=== PATIENT | female | born 1980 | race Caucasian/White ===

== ENCOUNTER 2021-05-29 14:37 | Outpatient (CLI) | payer OTHER, SELFPAY ==
[2021-05-29 20:16] LABS: Hematocrit 44.1 % (37.0-47.0); Hemoglobin 14.7 g/dL (12.0-15.0); Mean Corpuscular HGB Conc 33.3 g/dl (32-36); Mean Corpuscular Hemoglobin 30.9 pg (26-34); Mean Corpuscular Volume 92.8 fl (80-100); Mean Platelet Volume 9.6 fl (7.4-10.4); Platelet Count Result 293 k/mm3 (150-375); Red Blood Count 4.75 M/mm3 (4.2-5.4); White Blood Count 9.7 K/mm3 (4.5-10.0)
[2021-05-29 21:23] LABS: Vitamin D 25 Hydroxy 29.6 ng/mL
== END 2021-05-29 14:38 | disposition home or self-care (01) ==
LOC: ANHBWCLAB 14:38
PROVIDERS: Visit Provider Obstetrics & Gynecology
DX: R53.83 Other fatigue (principal)
CPT/HCPCS: 36415; 82306; 84443; 85027

== ENCOUNTER 2021-10-15 00:24 | Day surgery (SDC) | payer OTHER, SELFPAY ==
[2021-10-08 12:29] VITALS: BMI 33.5
--- NOTE | 2021-10-08 12:40 | PC.NURSE ---
Report to the Outpatient Waiting Room, entrance under the green pavilion located off [facility], at time 1000 on date 10/15/21. OR Time: 1200. - You and your visitor will be asked a series of questions to screen for COVID 19 for your protection. - A mask is required within the hospital. One visitor will be allowed to accompany the patient into the hospital. Patients visitor will be instructed to remain with patient at all times or leave the building. We will allow the visitor to come back to the postoperative area when patient is ready. Preoperative COVID Testing Requirements: No COVID Test needed if: (proof is required; if not received patient will have Rapid Test prior to entry) - Patient has received COVID Vaccine at least 14 days prior to procedure date or - Patient has positive COVID test result within last 90 days of surgery date. COVID Test needed if above criteria is not met Patients may have clear liquids (water, carbonated beverages, clear teas, apple juice) until 3 hours prior to surgery with a maximum of 20 ounces. - No food from midnight until time of surgery Take the following medications with a SIP of water the morning of surgery: ALPRAZOLAM (IF NEEDED) Medications to discontinue per physician: VITAMINS/SUPPLEMENTS Date to take last dose: 10/11/21 Please no make-up, nail luxembourgish, hairspray, perfume, deodorant, or body powder the day of surgery. No jewelry (including any body piercings) or valuables the day of surgery, leave them at home. Please take a shower or bath the night before, or the morning of, surgery with an antibacterial soap. Wear comfortable, loose fitting clothing. - Jewelry must be removed prior to entering the operating room. Rings and piercings that are not removed may be cut off. - The hospital will not accept responsibility for valuables. - Please leave all valuables, including medications, at home the day of surgery. If you are going home after surgery, a licensed light truck driver must drive you home. - NO public transportation without another adult. - We recommend that an adult stay with you for 24 hours following discharge. - We also recommend that you do not drive, make important decision, drink alcoholic beverages, or take any drugs that were not prescribed by your health care provider for at least 24 hours after your discharge time. Follow any additional instructions given to you from your surgeon. Telephone instructions given to GARRETT YEUNG and asked if any additional questions and then verbalized understanding. Patient advised to call surgeon office or pre surgery nurse liaison [phone] if any additional questions.
--- NOTE | 2021-10-11 16:14 | PM.IMHP ---
H&P: HPI History of Present Illness Date/Time: 10/11/21 16:14 40 y/o who was amenorrheic after balation in 2010 through 01/2021. Since then, she has had light irregular bleeding but very severe cramping any times she bleeds. She is opting for hysterectomy Chief Complaint: dysmenorrhea Review of Systems Review of Systems: All systems reviewed & are unremarkable except as noted in HPI and below PMFSH Past Medical History Medical History Elective x2 HSV (herpes simplex virus) infection Missed x1 Vaginal delivery x2 Surgical History Surgical History History of bilateral tubal ligation History of cholecystectomy 2013 History of endometrial ablation 07/14/11 History of exploratory laparotomy 1994? History of laparoscopy Previous section x1 [place] teeth extracted Family History Family History Father Carcinoma of colon Mother Breast cancer Skin cancer Anxiety Depression Sibling Asthma Anxiety Depression Grandparent Leukemia Lung cancer Brain cancer Grandparent Heart problem Social History Social History Years smoked: 6 Smoking status: Former smoker Tobacco type: e-cigarettes/vaping Smoking end date: 08/04/11 Additional smoking assessment comments: QUIT CIGARETTES IN 2011, VAPING NOW Alcohol intake: current Drinks per week: 2 Alcohol use details: 2/MONTH Substance use: never Substance use type: does not use Spiritual care concerns: No Meds Home Medications and Allergies Home Medications Medication Instructions Recorded Confirmed Type alprazolam 0.5 mg tablet 0.5 mg PO QHS PRN 05/29/21 10/08/21 History cholecalciferol (vitamin D3) 50 mcg PO DAILY 10/08/21 10/08/21 History [Vitamin D3] Allergies Allergy/AdvReac Type Severity Reaction Status Date / Time medroxyprogesterone Allergy Unknown Hives Verified 10/08/21 12:28 [From Depo-Provera] Penicillins Allergy Unknown Unknown Verified 10/08/21 12:28 Sulfa (Sulfonamide Allergy Unknown Hives Verified 10/08/21 12:28 Antibiotics) Exam Const: General: healthy appearing, no acute distress, alert and awake Resp: Auscultation: clear to auscultation bilaterally Cardio: Rate: regular rate Rhythm: regular rhythm GI: Inspection: non-distended GI Palp: Yes Soft to palpation and No Tenderness to palpation present (GI) : Bimanual exam- vagina & uterus: normal bimanual exam, uterine size normal, uterine mobility normal, non-tender and soft Bimanual Exam- Adnexa, other: normal adnexae, no masses and No adnexal tenderness Extrem: General: no pedal edema and no calf tenderness Psych: Mental Status: mental status grossly normal Assessment and Plan Assessment and plan (1) Dysmenorrhea: Code(s): N94.6 - Dysmenorrhea, unspecified Status: Acute Assessment and Plan: She signed consent after risks, benefits, complications, and alternatives discussed for TLH / bilateral salpingectomy. She expressed understanding and wishes to proceed
[2021-10-15] VITALS (9 sets, daily range): BP systolic 103–125; BP diastolic 68–87; PULSE 59–112; RESP 13–18; TEMP 36.1–36.7; O2SAT 96–100
[2021-10-15] MEDS: ACETAMINOPHEN 500 MG TABLET 1000 MG PO (10:55)
[2021-10-15] MEDS: LACTATED RINGERS 1,000 ML 30 ML IV CONT ×2 (11:00→14:06)
[2021-10-15] MEDS: KETOROLAC 15 MG/ML VIAL (*BKC) IV PUSH (11:05)
--- NOTE | 2021-10-15 11:14 | WPDANESEPPF ---
Anes - Initial Pre Proc Eval Procedure: Operation Date: 10/15/21 12:00 Proposed Procedures p Total Laparoscopic Hysterectomy with Bilateral Salpingectomy - Amy Copeland MD Date/Time: 10/15/21 11:14 Surgeon: Amy Copeland MD Pre Op Diagnosis: Severe Dysmenorrhea Patient Data Age: 40 Gender: F Height: 1.63 m Weight: 88.45 kg Allergies Allergy/AdvReac Type Severity Reaction Status Date / Time medroxyprogesterone Allergy Unknown Hives Verified 10/15/21 11:12 [From Depo-Provera] Penicillins Allergy Unknown Unknown Verified 10/15/21 11:12 Sulfa (Sulfonamide Allergy Unknown Hives Verified 10/15/21 11:12 Antibiotics) Home Medications Medication Instructions Recorded Confirmed Type alprazolam 0.5 mg tablet 0.5 mg PO QHS PRN 05/29/21 10/15/21 History cholecalciferol (vitamin D3) 50 mcg PO DAILY 10/08/21 10/15/21 History [Vitamin D3] Patient hx anesthesia problems: none Family hx anesthesia problems: none Results Review: All pre-operative results and documents have been reviewed as part of the pre-operative evaluation. [facility] Past Medical History Medical History Elective x2 HSV (herpes simplex virus) infection Missed x1 Vaginal delivery x2 Surgical History Surgical History History of bilateral tubal ligation History of cholecystectomy 2013 History of endometrial ablation 07/14/11 History of exploratory laparotomy 1994? History of laparoscopy Previous section x1 [place] teeth extracted Family History Family History Father Carcinoma of colon Mother Breast cancer Skin cancer Anxiety Depression Sibling Asthma Anxiety Depression Grandparent Leukemia Lung cancer Brain cancer Grandparent Heart problem Social History Social History Years smoked: 6 Smoking status: Former smoker Tobacco type: e-cigarettes/vaping Smoking end date: 08/04/11 Additional smoking assessment comments: QUIT CIGARETTES IN 2011, VAPING NOW Alcohol intake: current Drinks per week: 2 Alcohol use details: 2/MONTH Substance use: never Substance use type: does not use Living arrangements: with family Spiritual care concerns: No Anes - Eval Final PreProcedure Day of Procedure 10/15/21 11:14 Patient weight: obese Heart: regular rate and rhythm Lungs: clear to auscultation and normal air movement Airway: Mallampati scale class II Neurological: alert and oriented Last oral intake: >/= 8 hours ASA classification: II Emergent: no Anesthetic plan: proceed Anesthesia type and monitoring: general ETT and standard monitoring Results Review: All pre-operative results and documents have been reviewed as part of the pre-operative evaluation. Informed Consent: The patient's anesthetic plan and its attendant risks and benefits were discussed with the patient/family/POA. Questions were solicited and answers provided to the satisfaction of the patient/family/POA.
--- NOTE | 2021-10-15 11:46 | WPDHPUPDATE1 ---
History and Physical Update Update Date/Time: 10/15/21 11:46 History and Physical has been reviewed, including an updated exam of the patient. There are NO changes in the patient's condition. Risks, benefits, and alternatives have been discussed and questions answered. Patient agrees to proceed with procedure.
--- NOTE | 2021-10-15 11:59 | SUR.PREOP ---
1150; DR BARBOSA NOTIFIED OF RASH TO PT'S ABDOMEN
--- NOTE | 2021-10-15 12:04 | W.PM.PROC2 ---
Procedure Note - Detailed Date of Procedure 10/15/21 Pre-op Diagnosis Severe Dysmenorrhea Post-op Diagnosis Same Procedure Performed TLH, bilateral salpingectomy Surgeon Amy Copeland MD Anesthesia General Indications Severe cramping with bleeding after ablation Findings normal uterus, fallopian tubes with prior tubal ligation; normal ovaries, liver, appendix Description of Procedure She was taken to the operating room where general anesthesia was obtained. She was prepared and draped in the normal sterile fashion in the dorsal lithotomy position. Marcaine was injected infraumbilically. A 5 mm skin incision was made in the infraumbilical fold with a scalpel. A 5 mm non bladed trocar was placed with the camera in the trocar under direct visualization into the peritoneal cavity. Insufflation was begun and she was placed in Trendelenburg. An 11 mm trocar was placed in the right lower quadrant under direct visualization, and a 5 mm trocar on the left lower quadrant. Inspection of the pelvis revealed the findings as noted above. The right fallopian tube was grasped. The mesosalpinx was serially clamped, coagulated, and transected. The right fallopian tube was brought easily through 1 of the trocars and sent for pathologic evaluation. The left fallopian tube was then grasped for traction. The left meso salpinx was serially transected with excellent hemostasis noted. The left fallopian tube was also brought easily through 1 of the trocars and sent for pathology. The right round ligament was then divided. The right utero-ovarian ligament was then transected. The bladder flap was created from the right side. The left round ligament and then utero-ovarian ligaments were both transected using the Harmonic scalpel. The bladder flap was created from the left, meeting the flap from the right. The bladder was pushed down further with the laparoscopic Kittner. The right uterine artery was then skeletonized, clamped, coagulated and transected. Another couple bites were taken down the broad ligament to the level of the uterosacral ligament had been reached. The left uterine artery was then skeletonized, clamped, coagulated, and transected. Another couple bites were taken down the broad ligament to the level of the uterosacral ligament had been reached. Both uterosacral ligaments were then divided. A sponge stick was placed in the vagina and pressed against the anterior cul-de-sac. A colpotomy incision was made against the sponge stick with the Harmonic scalpel. The vagina was then circumferentially incised, hugging against the cervix. Once the cervix and uterus were completely free of the surrounding vaginal tissue, the cervix and uterus were pressed down as far as possible into the vaginal canal. Attention was then turned to the vagina. A speculum was placed in the vagina. The cervix was grasped with a tenaculum. The cervix and uterus were brought easily through the vagina using gentle traction. A moist blue towel was placed in the vagina to help hold in its pneumoperitoneum. Attention was then turned back to the abdomen. The pelvis was irrigated and inspected. All operative sites were noted to be hemostatic. The vaginal cuff was then closed using interrupted 0 Vicryl sutures. A total of 4 sutures were used for reapproximation. The pelvis was once again irrigated. All operative sites were again found to be hemostatic. The right lower quadrant trocar was removed. The Desmond-Pearl device along with an 0 Vicryl was used to close the fascia of the right lower quadrant incision. The pneumoperitoneum was allowed to escape. All trocars were removed. All 3 skin incisions were closed using 4 0 Monocryl in subcuticular fashion. She tolerated the procedure well. Sponge, lap, needle, and instrument counts were correct x2. She was taken to the recovery room in stable condition. Estimated Blood Loss 50 Urine Output 225 Drains Yes ([place]) Packin
[2021-10-15] MEDS: ceFAZolin 2 GM/D5W 50 ML 2 GM/50 ML BAG IVPB (12:06)
[2021-10-15] MEDS: BUPIVACAINE HCL 0.5% PF 30 ML VIAL INFILTRATE (12:50)
[2021-10-15] MEDS: fentaNYL CITRATE INJ (*CRX) 100 MCG/2 ML VIAL 25 MCG IV PUSH ×6 (14:25→15:08)
[2021-10-15] MEDS: KETOROLAC 30 MG/ML VIAL (*BKC) IV PUSH (16:47)
[2021-10-15] MEDS: HYDROcodone/acetaminophen (*CRX) 10-325 MG TABLET 1 TAB PO ×2 (18:10→23:20)
[2021-10-15] MEDS: HYDROcodone/acetaminophen (*CRX) 5-325 MG TABLET 1 TAB PO (20:05)
[2021-10-15] MEDS: MORPHINE SULFATE (*CRX) 4 MG/ML INJ IV PUSH (20:08)
[2021-10-15] MEDS: IBUPROFEN 600 MG TABLET PO (23:21)
[2021-10-16 04:05] VITALS: BP 104/70; PULSE 65; RESP 18; TEMP 36.6
[2021-10-16] MEDS: HYDROcodone/acetaminophen (*CRX) 10-325 MG TABLET 1 TAB PO (04:12)
[2021-10-16] MEDS: METOCLOPRAMIDE HCL INJ 10 MG/2 ML VIAL IV PUSH (04:12)
[2021-10-16 05:24] LABS: Basophils Percent Auto 0.3 % (0.2-1.2); Eosinophils Percent Auto 0.1 % (0-4.4); Hematocrit 37.6 % (37.0-47.0); Hemoglobin 12.5 g/dL (12.0-15.0); Immature Granulocyte Absolute 0.04 K/mm3 (0.00-0.031); Immature Granulocyte Percent A 0.3 % (0-0.5); Lymphocytes Absolute Auto 0.96 K/mm3 (0.9-3.2); Lymphocytes Percent Auto 7.5 % (18.3-44.2); Mean Corpuscular HGB Conc 33.2 g/dl (32-36); Mean Corpuscular Hemoglobin 30.5 pg (26-34); Mean Corpuscular Volume 91.7 fl (80-100); Mean Platelet Volume 9.6 fl (7.4-10.4); Monocytes Absolute Auto 0.5 K/mm3 (0.1-0.6); Monocytes Percent Auto 4.1 % (2.6-8.5); Neutrophils Absolute Auto 11.2 K/mm3 (1.3-6.7); Neutrophils Percent Auto 87.7 % (45.5-73.1); Platelet Count Result 256 k/mm3 (150-375); Red Cell Distribution Width 12.1 % (11.5-14.5); White Blood Count 12.8 K/mm3 (4.5-10.0)
[2021-10-16 05:32] LABS: Anion Gap 7 mmol/L (8-16); Blood Urea Nitrogen 5 mg/dL (7-17); Calcium 8.5 mg/dL (8.4-10.2); Carbon Dioxide 24 mmol/L (22-30); Chloride 108 mmol/L (98-107); Estimated CRCL calculation 102 ml/min; Estimated Glomerular Filt Rate > 60; Glucose 109 mg/dL (65-110); Sodium 139 mmol/L (137-145)
--- NOTE | 2021-10-16 08:09 | PM.GYNPNOP ---
EXPRESS MANAGER - A/P Postoperative Procedures: Procedures Operation Date: 10/15/21 12:00 Actual Procedure Side Surgeon p Total Laparoscopic Hysterectomy with Bilateral Salpingectomy Not Applicable Amy Copeland MD Postoperative day: 1 (s/p hysterectomy) Postoperative status: doing well Postoperative plan: routine post-op care and discharge (and follow up in office in 1 week) Time Spent With Patient Time: Total time spent is greater than 50% in coordination of care (as documented) at patient's floor/unit and/or counseling patient: Time with patient: less than 15 minutes EXPRESS MANAGER- PN:Subj Post-Op Subjective Date/time seen: 10/16/21 08:09 Subjective: patient has no complaints, pain is well controlled and other (Tolerating regular diet. + flatus. Voiding without problems) Exam Const: General: no acute distress Resp: Auscultation: clear to auscultation bilaterally Cardio: Rate: regular rate Rhythm: regular rhythm GI: Inspection: non-distended and incision (Intact without erythema, drainage, or induration) GI Palp: Yes abdominal tenderness (appropriate) and Yes Soft to palpation Extrem: General: no edema EXPRESS MANAGER - PN: Obj Data Vital Signs Vital Signs: Vital Signs - 24 hr 10/15/21 11:16 10/15/21 14:10 10/15/21 14:25 Temperature 36.1 C L 36.6 C Pulse Rate 82 112 H 65 Respiratory Rate 18 18 13 Blood Pressure 116/76 125/87 124/68 Pulse Oximetry 100 100 100 10/15/21 14:40 10/15/21 14:55 10/15/21 15:17 Temperature 36.3 C L Pulse Rate 75 66 59 L Respiratory Rate 14 14 16 Blood Pressure 112/75 112/71 103/69 Pulse Oximetry 100 99 96 10/15/21 17:10 10/15/21 19:50 10/15/21 23:19 Temperature 36.6 C 36.7 C Pulse Rate 59 L 79 72 Respiratory Rate 16 16 18 Blood Pressure 108/79 115/71 Pulse Oximetry 96 10/16/21 04:05 Temperature 36.6 C Pulse Rate 65 Respiratory Rate 18 Blood Pressure 104/70 Pulse Oximetry Intake/Output Intake/Output: Intake & Output 10/13/21 10/14/21 10/15/21 10/16/21 22:59 23:59 23:59 23:59 Intake Total 3150 800 Output Total 7613 1000 Balance 365 -200 Meds/Results Medications: Active Medications Generic Name Dose Route Start Last Admin Trade Name Freq PRN Reason Stop Dose Admin Hydrocodone Bitart/Acetaminophen 1 tab 10/15/21 15:11 10/15/21 20:05 Hydrocodone/Acetaminophen (*Crx) 5-325 Mg Tablet PO 1 tab Q3H PRN Administration Pain Rated 5 or Less Hydrocodone Bitart/Acetaminophen 1 tab 10/15/21 15:11 10/16/21 04:12 Hydrocodone/Acetaminophen (*Crx) 10-325 Mg Tablet PO 1 tab Q3H PRN Administration Pain Rated 6 or Greater Alprazolam 0.5 mg 10/15/21 15:11 Alprazolam (*Crx) 0.5 Mg Tablet PO HS PRN Anxiety Ibuprofen 600 mg 10/15/21 15:11 10/15/21 23:21 Ibuprofen 600 Mg Tablet PO 600 mg Q6H PRN Administration Cramping Ketorolac Tromethamine 30 mg 10/15/21 15:11 10/15/21 16:47 Ketorolac 30 Mg/Ml Vial (*Bkc) IV PUSH 10/20/21 15:10 30 mg Q6H PRN Administration Pain Rated 4-6 Metoclopramide HCl 10 mg 10/15/21 15:11 10/16/21 04:12 Metoclopramide Hcl Inj 10 Mg/2 Ml Vial IV PUSH 10 mg Q6H PRN Administration Nausea Morphine Sulfate 4 mg 10/15/21 15:11 10/15/21 20:08 Morphine Sulfate (*Crx) 4 Mg/Ml Inj IV PUSH 4 mg Q4H PRN Administration Pain Rated 7-10 Naloxone HCl 0.1 mg 10/15/21 15:11 Naloxone Hcl 0.4 Mg/Ml Vial IV PUSH Q2M PRN Respiratory rate less than 10 Ondansetron HCl 4 mg 10/15/21 15:11 Ondansetron Inj 4 Mg/2 Ml Vial IV PUSH Q6H PRN Nausea Simethicone 80 mg 10/15/21 15:11 Simethicone 80 Mg Tab.Chew PO Q2H PRN Gas Vitamin D 2,000 units 10/16/21 09:00 Cholecalciferol 1,000 Units Tablet PO DAILY ALEX Labs CBC & Chem 7: 10/16/21 04:05 10/16/21 04:05 Labs: Laboratory Results - last 24 hr 10/16/21 10/16/21 04:05 04:05 WBC 12.8 H RBC 4.10 L Hgb 12.5 Hct
--- NOTE | 2021-10-16 08:10 | PM.DS ---
DS: Admitting Diagnosis Discharge Date 10/16/2021 Admitting Diagnosis Severe dysmenorrhea DS: Discharge Diagnosis Discharge Diagnosis (1) Dysmenorrhea: Code(s): N94.6 - Dysmenorrhea, unspecified Status: Acute (2) Metrorrhagia: Code(s): N92.1 - Excessive and frequent menstruation with irregular cycle Status: Acute DS: Summary Hospital Course Hospital Course: Julee is 40 years old and was admitted on October 15, 2021 for a planned total laparoscopic hysterectomy and bilateral salpingectomy due to severe dysmenorrhea and [place] status post ablation. Her surgery was uneventful on October 15. Her postoperative course has also been uneventful. She is meeting all postoperative milestones including voiding, eating regular diet, passing flatus, and tolerating oral pain medications. She is being discharged home today with a follow-up and medications as noted. Status at Discharge Functional status at discharge: independent ambulation Overall status at discharge: patient is progressing back to baseline Time Spent with Patient Time attestation: Total time spent providing and/or coordinating discharge services: Time spent: Less than 30 minutes DS: Data Data Completed and Pending Pending studies at discharge: Pending at discharge 10/15/21 14:04 Surgical [PTH] Routine Labs on day of discharge: Labs from last 24 hours 10/16/21 10/16/21 04:05 04:05 WBC 12.8 H RBC 4.10 L Hgb 12.5 Hct 37.6 MCV 91.7 MCH 30.5 MCHC 33.2 RDW 12.1 Plt Count 256 MPV 9.6 Immature Gran % (Auto) 0.3 Neut % (Auto) 87.7 H Lymph % (Auto) 7.5 L [place] % (Auto) 4.1 Eos % (Auto) 0.1 Baso % (Auto) 0.3 Lymph # (Auto) 0.96 [place] # (Auto) 0.5 Eos # (Auto) 0.0 Baso # (Auto) 0.0 Abs Immat Gran (auto) 0.04 H Absolute Neuts (auto) 11.2 H Absolute Nucleated RBC 0.0 Nucleated RBC % 0.0 Sodium 139 Potassium 4.0 Chloride 108 H Carbon Dioxide 24 Anion Gap 7 L BUN 5 L Creatinine 0.70 Estim Creat Clear Calc 102 Estimated GFR > 60 Glucose 109 Calcium 8.5 Discharge Plan Discharge Patient Disposition: Home, Self-Care Stand Alone Forms: General Discharge Instructions Follow-up/Referrals: Amy Copeland MD [Physician] - 1 Week Discharge Medications: New hydrocodone-acetaminophen 5-325 mg Tablet 1 tablet PO Q4H PRN (Reason: Pain Rated 5 Or Less) Qty: 30 RF: 0 ibuprofen 600 mg Tablet 600 mg PO Q6H PRN (Reason: Cramping) Qty: 60 RF: 0 Continued alprazolam 0.5 mg tablet 0.5 mg PO QHS PRN (Reason: Anxiety) RF: 0 cholecalciferol (vitamin D3) [Vitamin D3] 50 mcg (2,000 unit) Capsule 50 mcg PO DAILY RF: 0 Quality VTE Prophylaxis VTE prophylaxis: mechanical ordered and pharmacologic ordered [facility] Discharge Billing Observation Discharge Observation Discharge: [id number] [facility] Care D/C
[2021-10-16 08:30] VITALS: BP 109/66; PULSE 67; RESP 18; TEMP 36.3; O2SAT 100
[2021-10-16] MEDS: CHOLECALCIFEROL 1,000 UNITS TABLET 2000 UNITS PO (09:13)
[2021-10-16] MEDS: IBUPROFEN 600 MG TABLET PO (09:18)
[2021-10-16] MEDS: HYDROcodone/acetaminophen (*CRX) 5-325 MG TABLET 1 TAB PO (09:19)
== END 2021-10-16 09:56 | disposition home or self-care (01) ==
LOC: ANHSURGERY 10:54 → ANHOB2 15:13
PROVIDERS: PCP Physician Assistant; Visit Provider Obstetrics & Gynecology
PROC: 0UT9FZZ Resection of Uterus, Via Natural or Artificial Opening With Percutaneous Endoscopic Assistance (ICD-10-PCS; CPT 58570; principal; 2021-10-15 12:00)
DX: N94.6 Dysmenorrhea, unspecified (principal); N80.0 Endometriosis of uterus; N73.6 Female pelvic peritoneal adhesions (postinfective); B00.9 Herpesviral infection, unspecified; F17.290 Nicotine dependence, other tobacco product, uncomplicated
CPT/HCPCS: 58570; 36415; 80048; 85025; 88307; 99199; A9270; J0690; J1100; J1170; J1885; J2250; J2270; J2405; J2704; J2710; J2765; J3010; J7120

== ENCOUNTER 2022-03-25 09:30 | Outpatient (CLI) | payer OTHER, SELFPAY ==
[2022-03-25 20:00] LABS: Alanine Aminotransferase 13 U/L (6-35); Albumin Level 4.5 g/dL (3.5-5.1); Alkaline Phosphatase 72 U/L (38-126); Anion Gap 10 mmol/L (8-16); Aspartate Amino Transferase 17 U/L (14-36); Bilirubin,Total 0.3 mg/dL (0.2-1.3); Blood Urea Nitrogen 10 mg/dL (7-17); Calcium 9.6 mg/dL (8.4-10.2); Carbon Dioxide 23 mmol/L (22-30); Chloride 103 mmol/L (98-107); Estimated Glomerular Filt Rate > 60; Glucose 97 mg/dL (65-110); Potassium 4.4 mmol/L (3.4-5.0); Sodium 136 mmol/L (137-145)
[2022-03-25 20:18] LABS: T4 Thyroxine 9.18 ug/dL (5.53-11.0)
[2022-03-25 20:28] LABS: Vitamin D 25 Hydroxy 27.3 ng/mL
[2022-03-27 20:28] LABS: FSH 3.9 mIU/mL (***)
[2022-03-28 09:18] LABS: Testosterone Total 29 ng/dL (2-45)
== END 2022-03-25 09:31 | disposition home or self-care (01) ==
PROVIDERS: PCP Physician Assistant; Visit Provider Obstetrics & Gynecology
DX: R68.82 Decreased libido (principal); R53.83 Other fatigue; Z80.9 Family history of malignant neoplasm, unspecified
CPT/HCPCS: 36415; 80053; 81162; 82306; 83001; 84403; 84436; 84443

== ENCOUNTER 2022-04-24 08:26 | Outpatient (NON) | payer OTHER, SELFPAY | END 2022-04-24 08:27 | disposition home or self-care (01) | LOC: ANHLAB 04-25 08:28 | PROVIDERS: PCP Physician Assistant; Visit Provider Internal Medicine Gastroenterology | DX: D12.3 Benign neoplasm of transverse colon (principal) | CPT/HCPCS: 88305 ==

== ENCOUNTER 2022-04-24 11:45 | Day surgery (SDC) | payer OTHER, SELFPAY ==
[2022-02-26 09:34] VITALS: BMI 32.6
[2022-04-16 14:15] VITALS: BMI 33.3
[2022-04-24 12:10] VITALS: BP 110/83; PULSE 118; RESP 18; TEMP 36.3; O2SAT 100
[2022-04-24] MEDS: LACTATED RINGERS 1,000 ML 150 ML IV CONT (12:40)
--- NOTE | 2022-04-24 12:52 | WPDANESEPPF ---
Anes - Initial Pre Proc Eval Procedure: Operation Date: 04/24/22 13:30 Proposed Procedures p Screening Colonoscopy - Jorge A Arzate MD Date/Time: 04/24/22 12:52 Surgeon: Jorge A Arzate MD Pre Op Diagnosis: Neoplasm Screening Patient Data Age: 41 Gender: F Height: 1.63 m Weight: 90.5 kg Last Vital Signs Temp 36.3 C L 04/24/22 12:10 Pulse 118 H 04/24/22 12:10 Resp 18 04/24/22 12:10 BP 110/83 04/24/22 12:10 Pulse Ox 100 04/24/22 12:10 O2 Del Method Room Air 04/24/22 12:10 Allergies Allergy/AdvReac Type Severity Reaction Status Date / Time medroxyprogesterone Allergy Unknown Hives Verified 04/24/22 12:16 [From Depo-Provera] Penicillins Allergy Unknown Unknown Verified 04/24/22 12:16 Sulfa (Sulfonamide Allergy Unknown Hives Verified 04/24/22 12:16 Antibiotics) Home Medications Medication Instructions Recorded Confirmed Type alprazolam 0.5 mg tablet 0.5 mg PO QHS PRN Anxiety 05/29/21 04/16/22 History cholecalciferol (vitamin D3) 50 50 mcg PO DAILY 10/08/21 04/24/22 History mcg (2,000 unit) capsule (Vitamin D3) Patient hx anesthesia problems: none Family hx anesthesia problems: none Results Review: All pre-operative results and documents have been reviewed as part of the pre-operative evaluation. [facility] Past Medical History Medical History Elective x2 HSV (herpes simplex virus) infection Missed x1 Vaginal delivery x2 Surgical History Surgical History History of bilateral salpingo-oophorectomy 10/15/21 History of bilateral tubal ligation History of cholecystectomy 2013 History of endometrial ablation 07/14/11 History of exploratory laparotomy 1994? History of hysterectomy 10/15/21, TLH History of laparoscopy Previous section x1 [place] teeth extracted Family History Family History Father Carcinoma of colon Mother Breast cancer Skin cancer Anxiety Depression Sibling Asthma Anxiety Depression Grandparent Leukemia Lung cancer Brain cancer Grandparent Heart problem Social History Social History Years smoked: 15 Smoking status: Current every day smoker Tobacco type: e-cigarettes/vaping Smoking end date: 08/04/11 Additional smoking assessment comments: QUIT CIGARETTES IN 2011, VAPING NOW Alcohol intake: current Drinks per week: 1 Alcohol use details: 1 DRINK PER MONTH Substance use: never Substance use type: does not use Living arrangements: with family Spiritual care concerns: No Anes - Eval Final PreProcedure Day of Procedure 04/24/22 12:52 Patient weight: obese Heart: regular rate and rhythm Lungs: clear to auscultation Airway: Mallampati scale class II Neurological: alert and oriented Last oral intake: >/= 8 hours ASA classification: II Emergent: no Anesthetic plan: proceed Anesthesia type and monitoring: general GIVS and standard monitoring Results Review: All pre-operative results and documents have been reviewed as part of the pre-operative evaluation. Informed Consent: The patient's anesthetic plan and its attendant risks and benefits were discussed with the patient/family/POA. Questions were solicited and answers provided to the satisfaction of the patient/family/POA.
--- NOTE | 2022-04-24 13:21 | PM.HPGS ---
History of Present Illness History of Present Illness Consent: Risks, benefits, and alternatives have been discussed and questions answered. Patient agrees to proceed with procedure. Chief complaint: Neoplasm Screening Narrative: Julee Finley is a 41 year old female with chronic constipation but in few occasions diarrhea, also intermittent abdominal pain. She had colonoscopy ~ 2013 Review of Systems Constitutional: Constitutional: Denies headache(s) and Denies weakness Eyes: Eyes: Denies blurry vision ENT: Reports Normal hearing present, Denies headache(s) and Denies neck pain Cardiovascular: Cardiovascular: Denies chest pain and Denies dyspnea Respiratory: Respiratory: Denies dyspnea Gastrointestinal: Gastrointestinal: Reports no additional gastrointestinal complaints Genitourinary: Genitourinary: Denies dysuria Musculoskeletal: Musculoskeletal: Denies neck pain Integumentary/Breasts: Skin/Breast: Denies dry skin Neurologic: Reports Normal hearing present, Denies headache(s) and Denies weakness Psychiatric: Psychiatric: Denies anxiety Endocrine: Endocrine: Denies change in body appearance Hematologic/Lymphatic: Hematologic/Lymphatic: Denies easy bleeding Allergic/Immunologic: Allergic/Immunologic: Denies urticaria PMF Past Medical History Medical History (Updated 04/24/22 @ 13:22 by Jorge A Arzate MD) Alternating constipation and diarrhea Elective x2 HSV (herpes simplex virus) infection Missed x1 Vaginal delivery x2 Surgical History Surgical History History of bilateral salpingo-oophorectomy 10/15/21 History of bilateral tubal ligation History of cholecystectomy 2013 History of endometrial ablation 07/14/11 History of exploratory laparotomy 1994? History of hysterectomy 10/15/21, [facility] History of laparoscopy Previous section x1 [place] teeth extracted Family History Family History Father Carcinoma of colon Mother Breast cancer Skin cancer Anxiety Depression Sibling Asthma Anxiety Depression Grandparent Leukemia Lung cancer Brain cancer Grandparent Heart problem Social History Social History Years smoked: 15 Smoking status: Current every day smoker Tobacco type: e-cigarettes/vaping Smoking end date: 08/04/11 Additional smoking assessment comments: QUIT CIGARETTES IN 2011, VAPING NOW Alcohol intake: current Drinks per week: 1 Alcohol use details: 1 DRINK PER MONTH Substance use: never Substance use type: does not use Living arrangements: with family Spiritual care concerns: No Meds Home Medications and Allergies Home Medications Medication Instructions Recorded Confirmed Type alprazolam 0.5 mg tablet 0.5 mg PO QHS PRN Anxiety 05/29/21 04/16/22 History cholecalciferol (vitamin D3) 50 50 mcg PO DAILY 10/08/21 04/24/22 History mcg (2,000 unit) capsule (Vitamin D3) Allergies Allergy/AdvReac Type Severity Reaction Status Date / Time medroxyprogesterone Allergy Unknown Hives Verified 04/24/22 12:16 [From Depo-Provera] Penicillins Allergy Unknown Unknown Verified 04/24/22 12:16 Sulfa (Sulfonamide Allergy Unknown Hives Verified 04/24/22 12:16 Antibiotics) Vital Signs Vital Signs - 24 hr 04/24/22 12:10 Temperature 97.4 F L Pulse Rate 118 H Respiratory Rate 18 Blood Pressure 110/83 Pulse Oximetry 100 Oxygen Delivery Room Air Exam Const: General: comfortable and no acute distress HENMT: General nose exam: Normal nares present Eyes: General: appearance normal, both eyes and all related structures Neck: Neck: no JVD Resp: Auscultation: clear to auscultation bilaterally Cardio: Rate: regular rate Rhythm: regular rhythm GI: Inspection: non-distended GI Palp: Yes Soft to pal
[2022-04-24 13:45] VITALS: BP 120/89; PULSE 102; RESP 18; O2SAT 100
[2022-04-24 13:55] VITALS: BP 113/83; PULSE 90; RESP 18; O2SAT 100
[2022-04-24 14:05] VITALS: BP 103/82; PULSE 89; RESP 18; O2SAT 100
--- NOTE | 2022-04-24 14:07 | WPDANESPN ---
Anes - Prog Note Post-Op Date/Time: 04/24/22 14:07 Cardiovascular status: normal Respiratory status: normal Airway patency: baseline Mental status: baseline Post-Op hydration status: normal Vital Signs: Last Vital Signs Temp 36.3 C L 04/24/22 12:10 Pulse 89 04/24/22 14:04 Resp 18 04/24/22 14:04 BP 103/82 04/24/22 14:04 Pulse Ox 100 04/24/22 14:04 O2 Del Method Room Air 04/24/22 14:04 Pain Score (VAS): 0/10 I/O: Intake & Output 04/23/22 04/24/22 04/24/22 23:59 07:59 15:59 Intake Total 350 Balance 350 Patient Feedback: Patient satisfied with anesthetic care.
== END 2022-04-24 14:16 | disposition home or self-care (01) ==
PROVIDERS: PCP Physician Assistant; Visit Provider Internal Medicine Gastroenterology
PROC: 0DJD8ZZ Inspection of Lower Intestinal Tract, Via Natural or Artificial Opening Endoscopic (ICD-10-PCS; CPT 45378; principal; 2022-04-24 13:30)
DX: Z12.11 Encounter for screening for malignant neoplasm of colon (principal)
CPT/HCPCS: 45385

== ENCOUNTER 2025-03-25 00:32 | Day surgery (SDC) | payer OTHER, SELFPAY ==
[2025-03-14 09:30] VITALS: BMI 33.5
--- OUTSIDE RECORDS SUMMARY | 2025-03-25 00:36 | XMS_ITS | Encounter Summary ---
Author Organization [facility] Address [address] [place] [address] Phone Care Team Providers Care Geothermal Operations Manager Name Role Phone Tiffanie Sorenson Primary Care Provider + Seema Thomas MD Unavailable [phone] Tanvi Kate APRN, NIGHTMAN Unavailable Encounter Details Date Type Department Care Team (Late st Contact Info) Description 02/15/2025 Results Follow-Up [facility] - Obstetrics & Gynecology [facility] [address] [place] [address] Ira Macias, PHARMACEUTICAL SALESPERSON, NIGHTMAN [address] [place] [address] CT ABDOMEN PELVIS W/ CONTRAST, EMG Social History Tobacco Use Types Packs/Day Years Used Date Smoking Tobacco: Former Smokeless Tobacco: Never Alcohol Use Standard Drinks/Week Comments Not Currently 2 (1 standard drink = 0.6 oz pur e alcohol) social drinker [facility] Utilities Answer Date Recorded In the past 12 months has e electric, gas, oil, or water company threatened to shut off services in your home? No 11/29/2024 Social Connection and Isolation Panel Answer Date Recorded In a typical week, how many times do you talk on the phone with family, friends, or neighbors? Three times a week 11/29/2024 How often do you get togethe r with friends or relatives? Once a week 11/29/2024 How often do you attend chur ch or sikh services? Never 11/29/2024 Do you belong to any clubs o r organizations such as gnosticist groups, unions, fraternal or athletic groups, or school groups? No 11/29/2024 How often do you attend meet ings of the clubs or organizations you belong to? Never 11/29/2024 Are you , , di vorced, , never , or living with a partner? 11/29/2024 AUDIT-C Answer Date Recorded Q1: How often do you have a drink containing alc ohol? Monthly or less 11/29/2024 Q2: How many drinks containi ng alcohol do you have on a typical day when you are drinking? 1 or 2 11/29/2024 Q3: How often do you have si x or more drinks on one occasion? Never 11/29/2024 Overall Financial Resource Strain (CARDIA) Answe r Date Recorded How hard is it for you to pa y for the very basics like food, housing, medical care, and heating? Somewhat hard 11/29/2024 PHQ-2 Answer Date Recorded Total Score - Questions 1-9 0 02/02 [facility] - Occupational Stress Questionnaire Answer Date Recorded Do you feel stress - tense, restless, nervous, or anxious, or unable to sleep at night because your mind is troubled all the time - these days? To some extent 11/29/2024 Exercise Vital Sign Answer Date Recorde d On average, how many days pe r week do you engage in moderate to strenuous exercise (like a brisk walk)? 2 days 11/29/2024 On average, how many minutes do you engage in exercise at this level? 30 min 11/29/2024 Hunger Vital Sign Answer Date Recorded Within the past 12 months, y ou worried that your food would run out before you got the money to buy more. Never true 11/30/19 25 Within the past 12 months, t he food you bought just didn't last and you didn't have money to get more. Never true 11/29/2024 PRAPARE - Transportation Answer Date Re corded In the past 12 months, has l ack of transportation kept you from medical appointments or from getting medications? No 11/03 In the past 12 months, has l ack of transportation kept you from meetings, work, or from getting things needed for daily living? No 11/29/2024 Housing Stability Vital Sign Answer Saleem e Recorded In the last 12 months, was t here a time when you were not able to pay the mortgage or rent on time? No 11/29/2024 In the past 12 months, how m any times have you moved where you were living? 0 11/29/2024 At any time in the past 12 m [facility], were you homeless or living in a half-way (including now)? No 11/29/2024 Sexually Active Control Partners Comments Yes Surgical Male Comments No Sex and Gender Information Value Date Recorded Sex Assigned at Female 07/03/2023 7:31 AM PHP MAGENTO DEVELOPER Legal Sex Female 8:00 PM CDT Gender Identity Female 07/03/2023 7:31 AM PHP MAGENTO DEVELOPER Sexual Orientation Straight 07/03/2023 7: 31 AM PHP MAGENTO DEVELOPER documented as of this encounter Plan of Treatment Upcoming Encounters Date Type Department Care Team (Late st Contact Info) Description 05/31/2025 2:15 PM CDT Office Visit [facility] - Family Medicine [facility] [address] [place] [address] Tiffanie Sorenson PAC [address] [place] [address] documented as of this encounter Visit Diagnoses Not on filedocumented in this encounter Additional Health Concerns Assessment Noted Time PHQ-9 Depression Total Score: 0 10/18/19 20 2:57 PM CDT documented as of this encounter Care Teams Geothermal Operations Manager Relationship Specialty Start Date End Date Tiffanie Sorenson PAC [address] [place] [address] PCP - General Physician Hand Paint Mixer 01/29/17 Seema Thomas MD [address] [place] [address] Consulting Physician Obstetrics & Gynecology 02/13/17 Tanvi Kate APRN, NIGHTMAN [address] [place] [id number] Obstetrics & Gynecology 10/21/19 documented as of this encounter
--- OUTSIDE RECORDS SUMMARY | 2025-03-25 00:36 | XMS_ITS | Clinical Summary ---
Author Organization [facility] Address [address] [place] [address] Care Team Providers Care Relay Tester Helper Name Role Phone Juan Sosa MD Primary Care Provider [phone] Source Comments [facility] Affiliates and Associated Physician Practices is amultiple site organization consisting of ambulatory clinics and hospital sitesin [place], [place], [place] and [place]. This disclosure is being madepursuant to the Care Everywhere program and may not contain all information available regarding this patient. Last updated 18.[facility] [employer] Social History Tobacco Use Types Packs/Day Years Used Date Smoking Tobacco: Never Assessed Comments Unknown Sex and Gender Information Value Date Recorded Sex Assigned at Not on file Legal Sex Female 6:27 AM NEIGHBORHOOD CONSERVATION OFFICER Gender Identity Not on file Sexual Orientation Not on file Last Filed Vital Signs Vital Sign Reading Time Taken Comments Blood Pressure 114/78 12/01/2015 11:47 AM CDT Pulse 78 12/01/2015 11:47 AM CDT Temperature 36.1 C (97 F) 12/01/2015 11:47 AM CDT Respiratory Rate 16 11/22/2015 3:15 PM CDT Oxygen Saturation 97% 11/22/2015 3:15 PM CDT Inhaled Oxygen Concentration - - Weight 94.8 kg (209 lb) 12/01/2015 11:47 AM CDT Height 160 cm (5' 3) 12/01/2015 11:47 AM CDT Body Mass Index 37.02 12/01/2015 11:47 AM CDT Plan of Treatment Health Maintenance Due Date Last Done Comments LIPID TESTING 1981 MAMMOGRAM 1981 HIV SCREENING 1996 HEPATITIS C SCREENING 10/23/1999 DTAP/TDAP/TD VACCINES (1 - Tdap) 2000 HEPATITIS B VACCINE (1 of 3 - 19+ 3-dose series) 2000 HPV VACCINE (1 - 3-dose SCDM series) 2008 COVID-19 VACCINE (1 - 2023-2 5 season) 2024 DEPRESSION SCREENING 08/04/2024 INFLUENZA VACCINE (#1) 2025 ZOSTER VACCINE (1 of 2) 10/28/2031 HIB VACCINE Aged Out No longer eligi ble based on patient's age to complete this topic MENINGOCOCCAL (Group B) VACC INE SHARED DECISION-MAKING Aged Out No longer eligibl e based on patient's age to complete this topic MENINGOCOCCAL GROUPS A/C/Y/W VACCINE Aged Out No longer eligible b ased on patient's age to complete this topic PNEUMOCOCCAL VACCINE Aged Out No long er eligible based on patient's age to complete this topic [place] [address] [place] [address] Care Teams Relay Tester Helper Relationship Specialty Start Date End Date Juan Sosa MD [address] [place] [address] PCP - General 04/27/19
--- OUTSIDE RECORDS SUMMARY | 2025-03-25 00:36 | XMS_ITS | Encounter Summary ---
Author Organization [facility] Address [address] [place] [address] Phone Care Team Providers Care Envelope Cutter Name Role Phone Tiffanie Sorenson Primary Care Provider + Seema Thomas MD Unavailable [phone] Tanvi Kate APRN, PLACEMENT SPECIALIST Unavailable [phone] Reason for Visit * Reason Onset Date Comments Results 12/03/2024 Encounter Details Date Type Department Care Team (Late st Contact Info) Description 12/03/2024 Telephone [facility] [address] [place] [address] Tiffanie Sorenson, PAC [address] [place] [address] Results Social History Tobacco Use Types Packs/Day Years Used Date Smoking Tobacco: Former Smokeless Tobacco: Never Alcohol Use Standard Drinks/Week Comments Not Currently 2 (1 standard drink = 0.6 oz pur e alcohol) social drinker [facility] Utilities Answer Date Recorded In the [...] often do you attend chur ch or mormon services? Never 11/29/2024 Do you belong to any clubs o r organizations such as quaker groups, unions, fraternal or athletic groups, or [...] Total Score - Questions 1-9 0 02/02 [facility] - Occupational Stress Questionnaire Answer Date Recorded [...] any time in the past 12 m [facility], were you homeless or living in a care home (including now)? No 11/29/2024 Sexually Active Control Partners Comments Yes Surgical Male Comments No Sex and Gender Information Value Date Recorded Sex Assigned at Female 07/03/2023 7:31 AM ELECTRICAL DESIGN ENGINEER Legal Sex Female 8:00 PM CDT Gender Identity Female 07/03/2023 7:31 AM ELECTRICAL DESIGN ENGINEER Sexual Orientation Straight 07/03/2023 7: 31 AM ELECTRICAL DESIGN ENGINEER documented as of this encounter Miscellaneous Notes * Telephone Encounter - Sima Hernandez RN - 12/03/2024 1:00 PM CDT Spoke with Rupa in radiology and this was marked as CHARANJIT. * Telephone Encounter - Eladia Merlos APRN, CNP - 12/03/2024 12:58 PM CDT Can we call x-ray and see if they can read this soon please? * Telephone Encounter - Loretta Benz RN - 12/03/2024 12:08 PM CDT Situation: Pt calling. Background: Pt contacting PCP office. Assessment: Pt calling regarding lab results and xray result. Pt states that she is still experiencing severe abdominal pain. Recommendation: Informed pt that xray result is not yet provided yet but that provider will review labs and you will receive call back with provider advice. Encounter routed to provider high priority to notify. documented in this encounter Plan of Treatment Upcoming Encounters Date Type Department Care Team (Late st Contact Info) Description 05/31/2025 2:15 PM CDT Office Visit [facility] - Family [facility] [address] [place] [address] Tiffanie Sorenson PAC [address] [place] [address] documented as of this encounter Visit Diagnoses Not on filedocumented in this encounter Additional Health Concerns Assessment Noted Time PHQ-9 Depression Total Score: 0 10/18/19 20 2:57 PM CDT documented as of this encounter Care Teams Envelope Cutter Relationship Specialty Start Date End Date Tiffanie Sorenson PAC [address] [place] [address] PCP - General Physician Coil Binder 01/29/17 Seema Thomas MD [address] [place] [address] Consulting Physician Obstetrics & Gynecology 02/13/17 Tanvi Kate, CHILD CARE TEACHER, PLACEMENT SPECIALIST [address] [place] [id number] Obstetrics & Gynecology 10/21/19 documented as of this encounter
--- OUTSIDE RECORDS SUMMARY | 2025-03-25 00:37 | XMS_ITS | Encounter Summary ---
Author Organization [facility] Address [address] [place] [address] Phone Care Team Providers Care Beater Out Name Role Phone No, Physician Primary Care Provider [phone] Tiffanie Sorenson Primary Care Provider [phone] Encounter Details Date Type Department Care Team (Late st Contact Info) Description 02/21/2019 Orders Only [facility] Scanning, Provider Social History Tobacco Use Types Packs/Day Years Used Date Smoking Tobacco: Former Alcohol Use Standard Drinks/Week Comments Yes 0 (1 standard drink = 0.6 oz pur e alcohol) Comments Unknown Sex and Gender Information Value Date Recorded Sex Assigned at Not on file Legal Sex Female 12:50 AM DIRECTOR OF INFECTION PREVENTION Gender Identity Female 05/04/2021 8:57 AM CDT Sexual Orientation Straight 05/04/2021 8: 57 AM CDT documented as of this encounter Plan of Treatment Not on file documented as of this encounter Procedures Procedure Name Priority Date/Time Associated Diagnosis Comments SCAN - RADIOLOGY/IMAGING 02/21/2019 documented in this encounter Results * SCAN - RADIOLOGY/IMAGING (02/21/2019) Anatomical Region Laterality Modality Other us Provider Scanning Final Result documented in this encounter Visit Diagnoses Not on filedocumented in this encounter Additional Health Concerns Infection Onset Date Last Indicated Resolved Time COVID: Suspected 11/27/2021 11/27/2021 11/28/2021 3:05 AM CDT COVID: Suspected 11/27/2021 11/27/2021 11/28/2021 5:22 AM CDT COVID: Suspected 08/16/2024 08/16/2024 08/16/2024 3:25 PM DIRECTOR OF INFECTION PREVENTION documented as of this encounter Care Teams Beater Out Relationship Specialty Start Date End Date No, Physician PCP - General 05/16/17 06/21/19 Tiffanie Sorenson PA [address] [address] PCP - General Teletype Mechanic 06/22/19 documented as of this encounter
--- OUTSIDE RECORDS SUMMARY | 2025-03-25 00:37 | XMS_ITS | Clinical Summary ---
Author Organization [facility] Address [address] [place] [address] Phone Care Team Providers Care Processor Solid Propellant Name Role Phone Tiffanie Sorenson Primary Care Provider + Seema Thomas MD Unavailable [phone] Tanvi Kate APRN, DIMENSIONAL INTEGRATION ENGINEER Unavailable [phone] Allergies Active Allergy Reactions Criticality Noted Date Comments Influenza Virus Vaccine Vomiting High 04/13/2019 Medroxyprogesterone Hives Reaction: hives, Penicillins Anaphylaxis 01/29/2017 Sulfa Antibiotics Anaphylaxis 01/29/2017 Medications fluticasone (FLONASE) 50 MCG/ACT Suspension 2 Sprays by Nasal route daily. Use in each nostril as directed. 18.2 mL 11/12/2022 Active albuterol 108 (90 Base) MCG/ACT Aerosol Solution take 2 Puffs by inhalation. 08/16/2024 Active PARoxetine (PAXIL) 10 MG TabletIndicatio ns:Anxiety Take 1 Tablet by mouth daily. 90 Tablet 01/27/2025 Active ALPRAZolam (XANAX) 0.5 MG TabletIndicatio ns:Panic attacks Take 1 Tablet by mouth 3 times daily as needed for Anxiety. 30 Tablet 01/27/2025 Active Active Problems Problem Noted Date Diagnosed Date Chronic abdominal pain 01/29/2018 Chronic constipation 01/29/2018 Lumbar and sacral osteoarthritis 03/28/2017 Encounters Date Type Department Care Team Description 02/23/2025 2:00 PM CDT EMG [facility] [address] [place] [address] Tiffanie Sorenson, MARGARITA Paresthesia Discharge Disposition: Discharged to home or Selfcare 02/23/2025 Travel 02/15/2025 Results Follow-Up [facility] Obstetrics & Gynecology [facility] [address] [place] [address] Ira Macias, HIV COUNSELOR, DIMENSIONAL INTEGRATION ENGINEER CT ABDOMEN PELVIS W/ CONTRAST, EMG 02/03/2025 7:42 AM CDT - 02/03/2025 11:59 PM CDT Hospital Encounter [facility] [address] [place] [address] Tiffanie Sorenson, MARGARITA Discharge Disposition: Discharged to home or Selfcare 02/03/2025 Travel 01/27/2025 3:00 PM CDT Office Visit [facility] Family Medicine [facility] [address] [place] [address] Tiffanie Sorenson, MARGARITA Irritable bowel syndrome with both constipation and diarrhea (Primary Dx); Paresthesia; Right upper quadrant abdominal pain; Right lower quadrant abdominal pain; Screening mammogram for breast cancer; Anxiety; Panic attacks Discharge Disposition: Discharged to home or Selfcare 01/27/2025 Travel from Last 3 Months Family History Medical History Relation Name Comments Cancer Father Tex Breast Cancer Maternal Aunt Breast Cancer Mother Rubina Cancer Mother Rubina Relation Name Status Comments Father Tex Alive Maternal Aunt Mother Rubina Alive Social History Tobacco Use Types Packs/Day Years Used Date Smoking Tobacco: Former Smokeless Tobacco: Never Alcohol Use Standard Drinks/Week Comments Not Currently 2 (1 standard drink = 0.6 oz pur e alcohol) social drinker [facility] Utilities Answer Date Recorded In the past 12 months has [employer] gas, oil, or water [employer] threatened to shut off services in your [...] often do you attend chur ch or zoroastrian services? Never 11/29/2024 Do you belong to [...] Recorded Total Score - Questions 1-9 0 2 08/2021 [facility] - Occupational Stress Questionnaire Answer Date Recorded [...] any time in the past 12 m onths, were you homeless or living in a penitentiary (including now)? No 11/29/2024 Sexually Active Control Partners Comments Yes Surgical Male Comments No Sex and Gender Information Value Date Recorded Sex Assigned at Female 07/03/2023 7:31 AM HAY RAKE OPERATOR Legal Sex Female 8:00 PM CDT Gender Identity Female 07/03/2023 7:31 AM HAY RAKE OPERATOR Sexual Orientation Straight 07/03/2023 7: 31 AM HAY RAKE OPERATOR Last Filed Vital Signs Vital Sign Reading Time Taken Comments Blood Pressure 104/66 01/27/2025 2:44 PM CDT Pulse 108 01/27/2025 2:44 PM CDT Temperature 36.7 C (98.1 F) 01/27/2025 2:44 PM CDT Respiratory Rate 16 11/30/2024 1:13 PM CDT Oxygen Saturation 99% 01/27/2025 2:44 PM CDT Inhaled Oxygen Concentration - - Weight 94.8 kg (209 lb) 01/27/2025 2:44 PM CDT Height 162.6 cm (5' 4) 01/27/2025 2:44 PM CDT Body Mass Index 35.87 01/27/2025 2:44 PM CDT Plan of Treatment Upcoming Encounters Date Type Department Care Team (Late st Contact Info) Description 05/31/2025 2:15 PM CDT Office Visit [facility] [address] [place] [address] Yas Tiffanie Quintana, PAC [address] [facility] [place] [address] Health Maintenance Due Date Last Done Comments Hepatitis C Virus (HCV) Screening 1981 TdaP Immunization 1981 Hepatitis B Immunization (1 of 3 - 19+ 3-dose series) 2000 Human Papillomavirus (HPV) Immunization (1 - 3-dose SCDM series) 2008 Mammogram 03/28/2022 03/28/2021, 08/05, 01/22/2018, Additional history exists SARS-COV-2 Immunization ( - season) 2024 01/24/2021, 01/03/2021 Influenza Immunization (#1) 2025 Respiratory Syncytial Virus (RSV) Immunization (Adult) (1 - 1-dose 75+ series) 2056 Discussion re Starting/Frequency of Mammograms Completed 04/20/2021, 03/28/2021, 08/24/2019, Additional history exists Meningococcal Immunization (ACWY) Aged Out No longer eligible based on patient's age to complete this topic Pneumococcal Immunization Combined Aged Out No longer eligible based on patient's age to complete this topic Rotavirus Immunization Aged Out No lo nger eligible based on patient's age to complete this topic Procedures Procedure Name Priority Date/Time Associated Diagnosis Comments EMG Routine 02/23/2025 2:00 PM CDT Paresthesia EMG/NCV 02/23/2025 12:[address] ABDOMEN PELVIS W/ CONTRAST Routine 02/03/2025 8:07 AM CDT Right upper quadrant abdominal pain Right lower quadrant abdominal pain DATNE DIAG LEFT UNILATERAL DIGITAL W CAD W TIFFANY Routine 04/20/2021 2:22 PM CDT Other signs and symptoms in breast DANTE SCREENING BILATERAL DIGITAL W CAD W TIFFANY Routine 03/28/2021 3:24 PM CDT Family history of malignant neoplasm of breast from Last 3 Months or Most Recently Relevant to Health Maintenance Results * EMG (02/23/2025 2:00 PM CDT) Narrative Lencho Davidson MD - 02/23/2025 2:00 PM CDT Lencho Davidson MD 02/24/2025 1:17 PM Electromyogram Procedure Note Date of Procedure: 02/23/2025 Pre-operative Diagnosis: right upper and lower extremity numbness, tingling and pain. Post-operative Diagnosis: Indications: Diagnostic Procedure Details Motor Nerve Conduction Studies: The right median motor nerve shows normal distal motor latency, normal motor amplitude and normal conduction velocity. The right ulnar motor nerve shows normal distal motor latency, normal motor amplitude and normal conduction velocity. The right peroneal motor nerve shows normal distal motor latency, normal motor amplitude and normal conduction velocity. The right tibial motor nerve shows normal distal motor latency, normal motor amplitude and normal conduction velocity. F waves: F wave latency for the right median nerve was normal. F wave latency for the right ulnar nerve was normal. F wave latency for the right peroneal nerve was normal. F wave latency for the right tibial nerve was normal. Sensory Nerve Conduction Studies: The right radial sensory nerve shows normal sensory nerve peak latency and normal sensory amplitude. The right sural sensory nerve shows normal sensory nerve peak latency and normal sensory amplitude. The right superficial peroneal sensory nerve shows normal sensory nerve peak latency and normal sensory amplitude. Median ulnar comparisons were normal, on the right. Median radial comparisons were normal, on the right. The right median sensory nerve shows normal sensory nerve peak latency and normal sensory amplitude. The right ulnar sensory nerve shows normal sensory nerve peak latency and normal sensory amplitude. EMG: Needle EMG of the right vastus medialis, tibialis anterior and gastrocnemius were normal. Summary This is a normal study without evidence of compression neuropathy of right upper and lower extremities. There was no evidence of radiculopathy of right lower extremity. Clinical correlation is recommended. [employer] NEUROLOGY ORDERABLES V2 Final Result * EMG/NCV (02/23/2025 12:00 AM CDT) 02/23/2025 [facility] NEUROLOGY ORDERABLES Fin al Result SCAN * CT ABDOMEN PELVIS W/ CONTRAST (02/03/2025 8:07 AM CDT) Anatomical Region Laterality Modality Abdomen N/A Computed Tomogra phy 02/12/2025 3:22 PM CDT Impressions 02/12/2025 3:25 PM CDT IMPRESSION: 1. No acute findings in the abdomen or pelvis. Unremarkable exam. 2. Uterus surgically absent. Gallbladder surgically absent. Narrative 02/12/2025 3:25 PM CDT EXAM DESCRIPTION: CT ABDOMEN PELVIS W/ CONTRAST REASON FOR STUDY: Abdominal pain with constipation and diarrhea. hx cholecystectomy and hysterectomy. TECHNIQUE: CT scan of the abdomen and pelvis performed with intravenous and without oral contrast using helical scanning technique with dynamic intravenous contrast injection. Reconstructed coronal and sagittal MPR images reviewed. All images stored on PACS. Automated exposure control was used as a dose optimization technique for this examination. CONTRAST TYPE/DOSE: 100mL of IOPAMIDOL 76 % IV SOLN injected via right arm IV COMPARISON: None FINDINGS: LOWER CHEST: No significant pulmonary abnormalities. No effusion. LIVER: Normal size. 1 cm cyst in the right lobe of the liver.. GALLBLADDER: Surgically absent. BILE DUCTS: No intrahepatic or extrahepatic ductal dilatation. SPLEEN: Normal size. No focal lesions. PANCREAS: No identified cystic or solid masses. No significant calcifications. No adjacent inflammation or peripancreatic fluid collections. Pancreatic duct not dilated. ADRENALS: Normal. KIDNEYS/URINARY TRACT: No identified significant cystic or solid masses. No visualized stones. No hydronephrosis or hydroureter. Symmetric enhancement. Urinary bladder is unremarkable. GI: No dilated bowel loops. No obvious wall thickening. Normal appendix. Scattered diverticular disease without diverticulitis. PERITONEUM: No ascites or free air. RETROPERITONEUM: No mass or adenopathy. REPRODUCTIVE: Uterus unremarkable. No adnexal mass lesions. VASCULATURE: No abdominal aortic aneurysm. MUSCULOSKELETAL: No significant abnormality. OTHER: No other abnormality. THIS IS AN ELECTRONICALLY VERIFIED FINAL REPORT 02/12/2025 3:22 PM - Electronically signed by Roman Don M.D. RW: ALICE Report ID: [id number] Reading Location: [id number] Procedure Note Roman Don MD - 02/12/2025 EXAM DESCRIPTION: CT ABDOMEN PELVIS W/ CONTRAST REASON FOR STUDY: Abdominal pain with constipation and diarrhea. hx cholecystectomy and hysterectomy. TECHNIQUE: CT scan of the abdomen and pelvis performed with intravenous and without oral contrast using helical scanning technique with dynamic intravenous contrast injection. Reconstructed coronal and sagittal MPR images reviewed. All images stored on PACS. Automated exposure control was used as a dose optimization technique for this examination. CONTRAST TYPE/DOSE: 100mL of IOPAMIDOL 76 % IV SOLN injected via right arm IV COMPARISON: None FINDINGS: LOWER CHEST: No significant pulmonary abnormalities. No effusion. LIVER: Normal size. 1 cm cyst in the right lobe of the liver.. GALLBLADDER: Surgically absent. BILE DUCTS: No intrahepatic or extrahepatic ductal dilatation. SPLEEN: Normal size. No focal lesions. PANCREAS: No identified cystic or solid masses. No significant calcifications. No adjacent inflammation or peripancreatic fluid collections. Pancreatic duct not dilated. ADRENALS: Normal. KIDNEYS/URINARY TRACT: No identified significant cystic or solid masses. No visualized stones. No hydronephrosis or hydroureter. Symmetric enhancement. Urinary bladder is unremarkable. GI: No dilated bowel loops. No obvious wall thickening. Normal appendix. Scattered diverticular disease without diverticulitis. PERITONEUM: No ascites or free air. RETROPERITONEUM: No mass or adenopathy. REPRODUCTIVE: Uterus unremarkable. No adnexal mass lesions. VASCULATURE: No abdominal aortic aneurysm. MUSCULOSKELETAL: No significant abnormality. OTHER: No other abnormality. THIS IS AN ELECTRONICALLY VERIFIED FINAL REPORT 02/12/2025 3:22 PM - Electronically signed by Roman Don M.D. RW: ALICE Report ID: [id number] Reading Location: [id number] IMPRESSION: 1. No acute findings in the abdomen or pelvis. Unremarkable exam. 2. Uterus surgically absent. Gallbladder surgically absent. Tiffanie Sorenson PAC IMG CT ORDERABLES Final Result * DANTE DIAG LEFT UNILATERAL DIGITAL W CAD W TIFFANY (04/20/2021 2:22 PM CDT) Anatomical Region Laterality Modality breast Left Mammography 04/20/2021 1:44 PM CDT Narrative 04/20/2021 4:18 PM CDT - [facility] DIAG LEFT UNILATERAL DIGITAL W CAD W TIFFANY - DANTE US BREAST LIMITED LT UNILATERAL LEFT DIGITAL DIAGNOSTIC MAMMOGRAM 3D/2D WITH CAD WITH CRANIOCAUDAL ROLLED LATERAL ROLLED MEDIAL SPOT COMPRESSION AND TARGETED LEFT ULTRASOUND: 04/20/2021 The study was acquired using digital technology and interpreted from soft copy. Current study was also evaluated with ICAD version 7.2. 2D digital mammographic views, as well as 3D digital tomosynthesis were performed in the CC and MLO projections. CLINICAL: Diagnostic study. Patient returns to evaluate an asymmetry in the left breast seen on CC view only. No personal history of cancer. Mother and maternal aunt with breast cancer. Patient returns to evaluate an asymmetry in the left breast. COMPARISONS: Comparison is made to exams dated: 03/28/2021, 08/24/2019, and 01/22/2018 [facility]. BREAST TISSUE:There are scattered fibroglandular densities in left breast. FINDINGS: DIAGNOSTIC LEFT MAMMOGRAM Repeat cc, rolled medial and lateral cc, spot compression cc and Mag 90 degree tomographic images of the left breast were performed. The focal asymmetry in the retroareolar tissues is seen on some but not all images. No spiculation or suspicious microcalcifications are identified. TARGETED LEFT BREAST ULTRASOUND Targeted left breast ultrasound was performed in the region of interest. There is evidence of retroareolar ductal ectasia with debris present within multiple ducts. Debris was witnessed to demonstrate movement during imaging. A particularly prominent duct measures 9 mm x 5 mm and may correlate with the mammographic finding. Power Doppler and color Doppler demonstrate no convincing evidence of abnormal intraductal flow IMPRESSION: OVERALL STUDY BIRADS: 3 PROBABLY BENIGN Retroareolar ductal ectasia with debris is probably benign. A follow-up mammogram and an ultrasound in 6 months is recommended to demonstrate stability. The patient has been or will be contacted. Electronically signed by: Jia Bowman M.D. ab/:04/20/2021 14:57:26 Group Manager(s): RT Silvano(R)(M), [facility]; Sharmaine Borjas, [facility] letter sent: Birad 3 Followup Reading location: [facility] OVERALL STUDY BIRADS: 3 Probably benign Procedure Note Jia Bowman MD - 04/20/2021 - DANTE DIAG LEFT UNILATERAL DIGITAL W CAD W TIFFANY - DANTE US BREAST LIMITED LT UNILATERAL LEFT DIGITAL DIAGNOSTIC MAMMOGRAM 3D/2D WITH CAD WITH CRANIOCAUDAL ROLLED LATERAL ROLLED MEDIAL SPOT COMPRESSION AND TARGETED LEFT ULTRASOUND: 04/20/2021 The study was acquired using digital technology and interpreted from soft copy. Current study was also evaluated with ICAD version 7.2. 2D digital mammographic views, as well as 3D digital tomosynthesis were performed in the CC and MLO projections. CLINICAL: Diagnostic study. Patient returns to evaluate an asymmetry in the left breast seen on CC view only. No personal history of cancer. Mother and maternal aunt with breast cancer. Patient returns to evaluate an asymmetry in the left breast. COMPARISONS: Comparison is made to exams dated: 03/28/2021, 08/24/2019, and 01/22/2018 [facility]. BREAST TISSUE:There are scattered fibroglandular densities in left breast. FINDINGS: DIAGNOSTIC LEFT MAMMOGRAM Repeat cc, rolled medial and lateral cc, spot compression cc and Mag 90 degree tomographic images of the left breast were performed. The focal asymmetry in the retroareolar tissues is seen on some but not all images. No spiculation or suspicious microcalcifications are identified. TARGETED LEFT BREAST ULTRASOUND Targeted left breast ultrasound was performed in the region of interest. There is evidence of retroareolar ductal ectasia with debris present within multiple ducts. Debris was witnessed to demonstrate movement during imaging. A particularly prominent duct measures 9 mm x 5 mm and may correlate with the mammographic finding. Power Doppler and color Doppler demonstrate no convincing evidence of abnormal intraductal flow IMPRESSION: OVERALL STUDY BIRADS: 3 PROBABLY BENIGN Retroareolar ductal ectasia with debris is probably benign. A follow-up mammogram and an ultrasound in 6 months is recommended to demonstrate stability. The patient has been or will be contacted. Electronically signed by: Jia Bowman M.D. ab/:04/20/2021 14:57:26 Group Manager(s): RT Silvano(R)(M), [facility]; Sharmaine Borjas [facility] letter sent: Birad 3 Followup Reading location: [facility] OVERALL STUDY BIRADS: 3 Probably benign us Tanvi Kate APRN, DIMENSIONAL INTEGRATION ENGINEER IMG MAMMO ORDERABLES Fin al Result * DANTE SCREENING BILATERAL DIGITAL W CAD W TIFFANY (03/28/2021 3:24 PM CDT) Anatomical Region Laterality Modality breast Bilateral Mammography 03/28/2021 3:01 PM CDT Narrative 03/28/2021 4:42 PM CDT - DANTE SCREENING BILATERAL DIGITAL W CAD W TIFFANY BILATERAL DIGITAL SCREENING MAMMOGRAM 3D/2D WITH CAD WITH MEDIOLATERAL OBLIQUE CRANIOCAUDAL: 03/28/2021 The study was acquired using digital technology and interpreted from soft copy. Current study was also evaluated with ICAD version 7.2. 2D digital mammographic views, as well as 3D digital tomosynthesis were performed in the CC and MLO projections. CLINICAL: Routine screening. Patient has no complaints. No personal history of cancer. Mother and maternal aunt with breast cancer. COMPARISONS: Comparison is made to exams dated: 08/24/2019 and 01/22/2018 [facility]. BREAST TISSUE:There are scattered fibroglandular densities in both breasts. FINDINGS: There is an asymmetry in the left breast sub-areolar depth central to the nipple seen on the craniocaudal view only. No other significant masses, calcifications, or other findings are seen in either breast. IMPRESSION: BI-RAD 0 ADDITIONAL IMAGING EVALUATION NEEDED The asymmetry in the left breast is indeterminate. An immediate follow-up is recommended. The patient has been or will be contacted. Electronically signed by: Pooja pandey/evelin:03/28/2021 16:18:22 Group Manager(s): RT Silvano(R)(M), [facility] letter sent: Additional Imaging Reading location: [facility] BI-RADS: 0 Additional Imaging Evaluation Needed Procedure Note Pooja Goode MD - 03/28/2021 - DANTE SCREENING BILATERAL DIGITAL W CAD W TIFFANY BILATERAL DIGITAL SCREENING MAMMOGRAM 3D/2D WITH CAD WITH MEDIOLATERAL OBLIQUE CRANIOCAUDAL: 03/28/2021 The study was acquired using digital technology and interpreted from soft copy. Current study was also evaluated with ICAD version 7.2. 2D digital mammographic views, as well as 3D digital tomosynthesis were performed in the CC and MLO projections. CLINICAL: Routine screening. Patient has no complaints. No personal history of cancer. Mother and maternal aunt with breast cancer. COMPARISONS: Comparison is made to exams dated: 08/24/2019 and 01/22/2018 [facility]. BREAST TISSUE:There are scattered fibroglandular densities in both breasts. FINDINGS: There is an asymmetry in the left breast sub-areolar depth central to the nipple seen on the craniocaudal view only. No other significant masses, calcifications, or other findings are seen in either breast. IMPRESSION: BI-RAD 0 ADDITIONAL IMAGING EVALUATION NEEDED The asymmetry in the left breast is indeterminate. An immediate follow-up is recommended. The patient has been or will be contacted. Electronically signed by: Pooja pandey/evelin:03/28/2021 16:18:22 Group Manager(s): RT Silvano(R)(M), [facility] letter sent: Additional Imaging Reading location: [facility] BI-RADS: 0 Additional Imaging Evaluation Needed Tanvi Kate APRN, [place] IMG MAMMO ORDERABLES Fin al Result from Last 3 Months or Most Recently Relevant to Health Maintenance Insurance Care Teams Processor Solid Propellant Relationship Specialty Start Date End Date Tiffanie Sorenson PAC [address] [place] [address] PCP - General Physician Sales Promotion Director 01/29/17 Seema Thomas MD [address] [place] [address] Consulting Physician Obstetrics & Gynecology 02/13/17 Tanvi Kate APRN, DIMENSIONAL INTEGRATION ENGINEER [address] [place] [id number] Obstetrics & Gynecology 10/21/19
[2025-03-25 12:46] VITALS: BP 119/91; PULSE 126; RESP 18; TEMP 36.6; O2SAT 100; BMI 35.2
[2025-03-25] MEDS: LACTATED RINGERS 1,000 ML 150 ML IV CONT (12:58)
--- NOTE | 2025-03-25 13:12 | PM.HPGS ---
History of Present Illness History of Present Illness Consent: Risks, benefits, and alternatives have been discussed and questions answered. Patient agrees to proceed with procedure. Chief complaint: Other constipation Narrative: Julee Finley is a 44 year old female with last colonoscopy 2021 with TA polyp, here with pain in rt abdomen and alternating constipation and diarrhea Review of Systems Review of Systems: All systems reviewed & are unremarkable except as noted in HPI and below PMFSH Past Medical History Medical History (Updated 04/24/22 @ 13:22 by Jorge A Arzate MD) Alternating constipation and diarrhea Elective x2 Vaginal delivery x2 Missed x1 HSV (herpes simplex virus) infection Surgical History Surgical History History of bilateral salpingo-oophorectomy 10/15/21 History of hysterectomy 10/15/21, [facility] [place] teeth extracted History of bilateral tubal ligation History of laparoscopy History of cholecystectomy 2013 History of exploratory laparotomy 1994? History of endometrial ablation 07/14/11 Previous section x1 Family History Family History Father Carcinoma of colon Mother Breast cancer Skin cancer Anxiety Depression Sibling Asthma Anxiety Depression Grandparent Leukemia Lung cancer Brain cancer Grandparent Heart problem Social History Social History Smoking packs per day: 2 Smoking cigarettes per day: 40.0 Years smoked: 30 Smoking pack-years: 60.00 Smoking status: Current every day smoker Tobacco type: cigarettes and e-cigarettes/vaping Smoking end date: 08/04/11 Additional smoking assessment comments: QUIT CIGARETTES IN 2011, VAPING NOW Alcohol intake: current Drinks per week: 1 Alcohol use details: 4 drinks a month Substance use: never Substance use type: does not use Living arrangements: with family Spiritual care concerns: No Meds Home Medications and Allergies Home Medications ?Medication ?Instructions ?Recorded ?Confirmed ?Type alprazolam 0.5 mg tablet 0.5 mg PO QHS PRN Anxiety 05/29/21 03/14/25 History cholecalciferol (vitamin D3) 50 50 mcg PO DAILY 10/08/21 03/25/25 History mcg (2,000 unit) capsule (Vitamin D3) Allergies Allergy/AdvReac Type Severity Reaction Status Date / Time medroxyprogesterone (From Allergy Unknown Hives Verified 03/25/25 12:44 Depo-Provera) Penicillins Allergy Unknown Unknown Verified 03/25/25 12:44 Sulfa (Sulfonamide Allergy Unknown Hives Verified 03/25/25 12:44 Antibiotics) Vital Signs Vital Signs - 24 hr 03/25/25 12:46 Temperature 97.9 F Pulse Rate 126 H Respiratory Rate 18 Blood Pressure 119/91 H Pulse Oximetry 100 Oxygen Delivery Room Air Exam Const: General: comfortable and no acute distress HENMT: Face/Nose/Sinus: Normal nares present Eyes: General: appearance normal, both eyes and all related structures Neck: Neck: no JVD Resp: Auscultation: clear to auscultation bilaterally Cardio: Rate: regular rate Rhythm: regular rhythm GI: Inspection: non-distended GI Palp: Yes Soft to palpation Skin: General skin exam: normal color Neuro: General: gait normal Speech: normal speech Extrem: General: normal to inspection Psych: Mental Status: mental status grossly normal Assessment and Plan Assessment and plan (1) Alternating constipation and diarrhea: Code(s): R19.8 - Other specified symptoms and signs involving the digestive system and abdomen Status: Acute Assessment and Plan: colonoscopy with bx (2) History of colon polyps: Code(s): Z86.010 - Personal history of colon polyps Status: Acute
--- NOTE | 2025-03-25 13:12 | WPDANESEPPF ---
Anes - Initial Pre Proc Eval Procedure: Operation Date: 03/25/25 14:00 Proposed Procedures p Diagnostic Colonoscopy - Jorge A Arzate MD Date/Time: 03/25/25 13:12 Surgeon: Jorge A Arzate MD Pre Op Diagnosis: Other constipation Patient Data Age: 44 Gender: F Height: 1.63 m Weight: 92.9 kg Last Vital Signs Temp 36.6 C 03/25/25 12:46 Pulse 126 H 03/25/25 12:46 Resp 18 03/25/25 12:46 BP 119/91 H 03/25/25 12:46 Pulse Ox 100 03/25/25 12:46 O2 Del Method Room Air 03/25/25 12:46 Allergies Allergy/AdvReac Type Severity Reaction Status Date / Time medroxyprogesterone (From Allergy Unknown Hives Verified 03/25/25 12:44 Depo-Provera) Penicillins Allergy Unknown Unknown Verified 03/25/25 12:44 Sulfa (Sulfonamide Allergy Unknown Hives Verified 03/25/25 12:44 Antibiotics) Home Medications ?Medication ?Instructions ?Recorded ?Confirmed ?Type alprazolam 0.5 mg tablet 0.5 mg PO QHS PRN Anxiety 05/29/21 03/14/25 History cholecalciferol (vitamin D3) 50 50 mcg PO DAILY 10/08/21 03/25/25 History mcg (2,000 unit) capsule (Vitamin D3) Patient hx anesthesia problems: none Family hx anesthesia problems: none Results Review: All pre-operative results and documents have been reviewed as part of the pre-operative evaluation. [facility] Past Medical History Medical History Alternating constipation and diarrhea Elective x2 Vaginal delivery x2 Missed x1 HSV (herpes simplex virus) infection Surgical History Surgical History History of bilateral salpingo-oophorectomy 10/15/21 History of hysterectomy 10/15/21, [facility] [place] teeth extracted History of bilateral tubal ligation History of laparoscopy History of cholecystectomy 2013 History of exploratory laparotomy 1994? History of endometrial ablation 07/14/11 Previous section x1 Family History Family History Father Carcinoma of colon Mother Breast cancer Skin cancer Anxiety Depression Sibling Asthma Anxiety Depression Grandparent Leukemia Lung cancer Brain cancer Grandparent Heart problem Social History Social History Smoking packs per day: 2 Smoking cigarettes per day: 40.0 Years smoked: 30 Smoking pack-years: 60.00 Smoking status: Current every day smoker Tobacco type: cigarettes and e-cigarettes/vaping Smoking end date: 08/04/11 Additional smoking assessment comments: QUIT CIGARETTES IN 2011, VAPING NOW Alcohol intake: current Drinks per week: 1 Alcohol use details: 4 drinks a month Substance use: never Substance use type: does not use Living arrangements: with family Spiritual care concerns: No Anes - Eval Final PreProcedure Day of Procedure 03/25/25 13:12 Patient weight: obese Heart: regular rate and rhythm Lungs: clear to auscultation Airway: Mallampati scale class II Neurological: alert and oriented Last oral intake: >/= 8 hours ASA classification: II Emergent: no Anesthetic plan: proceed Anesthesia type and monitoring: general GIVS and standard monitoring Results Review: All pre-operative results and documents have been reviewed as part of the pre-operative evaluation. Informed Consent: The patient's anesthetic plan and its attendant risks and benefits were discussed with the patient/family/POA. Questions were solicited and answers provided to the satisfaction of the patient/family/POA.
--- NOTE | 2025-03-25 13:28 | S_PTH ---
PATIENT: Julee Finley LOC: [facility] #:[id number] AGE/SX: 44/F ROOM: RE03/25/[address]: Jorge A Arzate MD : 1980 BED: DIS: 03/25/2025 SPEC #: [id number] RECD: 03/25/25 13:58 STATUS: YOUNG REQ #: [id number] KELSEA: 03/25/25 13:[address]: Jorge A Arzate DEPT: [facility] Surgical RECD BY: Dian Sharma ENTERED: 03/25/25 13:59 SP TYPE: Surgical OTHR DR: Tiffanie Sorenson, PA Tissues: A - Colon Biopsy Procedures: Hematoxylin and Eosin Stain Gross and Microscopic Level 4
[2025-03-25 13:29] VITALS: BP 116/84; PULSE 92; RESP 20; O2SAT 96
[2025-03-25 13:39] VITALS: BP 117/86; PULSE 90; RESP 20; O2SAT 95
[2025-03-25 13:49] VITALS: BP 123/85; PULSE 84; RESP 20; O2SAT 100
== END 2025-03-25 14:00 | disposition home or self-care (01) ==
PROVIDERS: PCP Physician Assistant; Referring Provider Physician Assistant; Visit Provider Internal Medicine Gastroenterology
PROC: 0DJD8ZZ Inspection of Lower Intestinal Tract, Via Natural or Artificial Opening Endoscopic (ICD-10-PCS; CPT 45378; principal; 2025-03-25 14:00)
DX: R19.8 Other specified symptoms and signs involving the digestive system and abdomen (principal); K64.8 Other hemorrhoids; K57.30 Diverticulosis of large intestine without perforation or abscess without bleeding; F17.290 Nicotine dependence, other tobacco product, uncomplicated; E66.9 Obesity, unspecified; Z68.35 Body mass index [BMI] 35.0-35.9, adult; Z98.890 Other specified postprocedural states; Z98.51 Tubal ligation status; Z90.49 Acquired absence of other specified parts of digestive tract; Z98.891 History of uterine scar from previous surgery; Z86.0100 Personal history of colon polyps, unspecified; Z80.0 Family history of malignant neoplasm of digestive organs; Z80.3 Family history of malignant neoplasm of breast; Z84.0 Family history of diseases of the skin and subcutaneous tissue; Z80.6 Family history of leukemia; Z80.1 Family history of malignant neoplasm of trachea, bronchus and lung; Z82.49 Family history of ischemic heart disease and other diseases of the circulatory system
CPT/HCPCS: 45380; 88305; J2003; J7120